=== PATIENT | male | born 1975 | race Caucasian/White ===

== ENCOUNTER 2021-11-08 10:16 | Emergency (ER) | payer OTHER ==
[~2021-11-08 10:16] MED LIST: ATARAX25 MG PO
[2021-11-08 11:11] LABS: ALBUMIN 4.1 g/dL (3.4-5.0); BILIRUBIN - TOTAL 0.3 mg/dL (0.2-1.0); BUN/CREAT RATIO (CALC) 11.1 RATIO; CREATININE 0.81 mg/dL (0.67-1.17); GLOBULIN (CALCULATION) 2.8 g/dL; POTASSIUM 3.9 mmol/L (3.5-5.1); TOTAL PROTEIN 6.9 g/dL (6.4-8.2)
[2021-11-08 11:13] LABS: BASOPHIL 0.7 % (0-2); EOSINOPHIL 3.2 % (0-5); HCT 37.1 % (42.0-52.0); HGB 16.1 g/dl (13.2-18.0); LYMPHOCYTE 33.4 % (15-48); MCH 42.4 pg (25.0-31.0); MCHC 43.4 g/dL (32.0-36.0); MCV 97.6 fL (78.0-100.0); MONOCYTE 8.8 % (0-12); MPV 11.2 fL (6.0-9.5); NEUTROPHIL 53.5 % (41-80); NRBC 0; PLT 149 K/uL (150-400); RDW 13.8 % (11.5-14.0); WBC 6.8 K/uL (4.0-10.5)
[2021-11-08] MEDS ORDERED: PRILOSEC20 MG PO (11:44)
[2021-11-08] MEDS ORDERED: NORVASC5 MG PO (11:44)
== END 2021-11-08 12:41 | disposition home or self-care (01) ==
LOC: FER 10:16
PROVIDERS: Internal Medicine
DX: R07.89 Other chest pain (principal); I10 Essential (primary) hypertension; K30 Functional dyspepsia
CPT/HCPCS: 36415; 71045; 80053; 83690; 84484; 85025; 93005